=== PATIENT | female | born 1950 | race Caucasian/White ===

== ENCOUNTER 2020-02-06 13:38 | Emergency (ER) | payer OTHER, MEDICAID ==
[~2020-02-06] VITALS: Ht 157.5 cm; Wt 66.2 kg
[2020-02-06 13:41] VITALS: BP 114/46
[2020-02-06] MEDS ORDERED: KETOROLAC 30 MG/ML VIAL IM ONE (15:10)
[2020-02-06 16:33] VITALS: BP 108/60
== END 2020-02-06 16:33 ==
LOC: MED 13:38
DX: G43.909 Migraine, unspecified, not intractable, without status migrainosus (principal); G44.209 Tension-type headache, unspecified, not intractable; I10 Essential (primary) hypertension; Z90.49 Acquired absence of other specified parts of digestive tract; Z90.710 Acquired absence of both cervix and uterus
CPT/HCPCS: 96372; 99283; J1885

== ENCOUNTER 2021-04-03 15:29 | Emergency (ER) | payer OTHER, MEDICAID ==
[~2021-04-03] VITALS: Ht 157.5 cm; Wt 74.8 kg
[2021-04-03 15:34] VITALS: BP 117/66
[2021-04-03] MEDS ORDERED: AMOX-999 PO (16:21)
[2021-04-03] MEDS ORDERED: ACET-10509 PO (16:21)
== END 2021-04-03 18:00 | disposition home or self-care (01) ==
LOC: MED 15:29
DX: S01.512A Laceration without foreign body of oral cavity, initial encounter (principal); I10 Essential (primary) hypertension; Z79.2 Long term (current) use of antibiotics; Z79.899 Other long term (current) drug therapy; X58.XXXA Exposure to other specified factors, initial encounter; Y92.89 Other specified places as the place of occurrence of the external cause; Y93.89 Activity, other specified; Y99.8 Other external cause status
CPT/HCPCS: 99283